=== PATIENT | male | born 1945 | race African-American/Black ===

== ENCOUNTER 2017-12-12 13:12 | Outpatient (CLI) | payer MEDICARE ==
--- NOTE | 2017-12-12 14:11 | RAD ---
4 VIEWS LUMBOSACRAL SPINE: Date: 12/12/17 COMPARISON: None. HISTORY: Low back pain radiating down both leg since last year. FINDINGS: AP, lateral, flexion, and extension views of the lumbosacral spine were performed. There is diffuse i ntervertebral disc space narrowing and moderate osteophytes throughout the lumbar spine. Vertebral fabián dies demonstrate normal height without fracture or subluxation. Alignment is unchanged with flexion a nd extension. Mild scoliotic curvature of the lumbar spine is seen. IMPRESSION: Degenerative changes of the lumbar spine with unchanged alignment with bending. POS: YOON
--- NOTE | 2017-12-12 14:45 | MRI ---
MRI OF THE LUMBAR SPINE WITHOUT CONTRAST: Comparison: 12-28-16 History: Low back pain radiating down both legs since last year. Technique: Multiplanar, multisequence MRI images were obtained of the lumbar spine without contrast. FINDINGS: There is diffuse low signal within the bone marrow on all obtained sequences which could represent a marrow infiltrative process. Generalized disc desiccation is seen. Endplate degenerative changes are seen throughout the lumbar spine. The conus medullaris terminates normally at L1-2. The prevertebral and paraspinal soft tissues are un remarkable. There is an area of abnormal high T1 and T2 signal within the central canal at the L3-4 l evel measuring approximately 8 mm in size. This is associated with the filum terminale and was not se en on the prior examination. T12-L1: Unremarkable. L1-2: A small disc osteophyte complex is seen. Mild bilateral posterior facet arthrosis. Mild central canal stenosis. No neural foraminal stenosis. L2-3: A small disc osteophyte complex is seen. Mild bilateral posterior facet arthrosis. Mild central canal stenosis. Mild bilateral neural foraminal stenosis. L3-4: The previously seen large protrusion is no longer present and may have been removed. A very min imal right subarticular disc bulge is seen. This is in the region where the abnormal signal is seen w ithin the central canal. Moderate posterior facet arthrosis. Moderate central canal stenosis. Moderat e bilateral neural foraminal stenosis. L4-5: A minimal disc osteophyte complex is seen. Moderate bilateral posterior facet arthrosis. Mild t o moderate central canal stenosis. Moderate bilateral neural foraminal stenosis. L5-S1: No significant bulge or protrusion. Moderate bilateral posterior facet arthrosis. No central c anal stenosis. Mild bilateral neural foraminal stenosis. IMPRESSION: 1. Degenerative changes of the lumbar spine as above. The previously seen protrusion at L3-4 is no lo nger present but there is abnormal signal within the central canal at this level. Post contrast MR im ages recommended to evaluate this lesion more definitely. 2. Diffuse low signal throughout the marrow could suggest a marrow infiltrative process. Correlate wi th laboratory values. POS: YOON
== END 2017-12-12 13:13 | disposition home or self-care (01) ==
LOC: TBSIIMAG 13:12
PROVIDERS: ATTEND Surgery
DX: M47.26 Other spondylosis with radiculopathy, lumbar region (principal)
CPT/HCPCS: 72110; 72148

== ENCOUNTER 2018-01-11 12:10 | Outpatient (CLI) | payer MEDICARE ==
[2018-01-11 13:06] LABS: Hemoglobin 14.6 g/dL (14.0-18.0); Mean Corpuscular HGB CONC 32.7 g/dL (32.0-36.0); Mean Corpuscular Volume 88.9 fL (78.0-98.0); Mean Platelet Volume 7.4 fL (7.4-10.4); Platelet Count 160 thou/uL (130-400); RBC Distribution Width 12.3 % (11.5-14.5); Red Blood Cell (RBC) Count 5.02 mill/uL (4.70-6.10); White Blood Cell (WBC) Count 5.1 thou/uL (4.8-10.8)
[2018-01-11 13:16] LABS: INR-International Normal Ratio 1.1; PTT 26.4 SEC (22.9-36.1); Prothrombin Time 13.8 SEC (12.0-14.7)
[2018-01-11 13:22] LABS: Anion Gap 11 mmol/L (10-20); BUN (Urea Nitrogen) 19 mg/dL (8.4-25.7); Calc. Creatinine Clearance 0 mL/min (70-130); Calcium 9.6 mg/dL (7.8-10.44); Carbon Dioxide 26 mmol/L (23-31); Chloride 107 mmol/L (98-107); Estimated GFR-MDRD 87; Glucose 98 mg/dL (83-110); Potassium 4.3 mmol/L (3.5-5.1); Sodium 140 mmol/L (136-145)
== END 2018-01-11 12:11 | disposition home or self-care (01) ==
LOC: LABBT 12:10
PROVIDERS: ATTEND Surgery
DX: Z01.818 Encounter for other preprocedural examination (principal); M48.061 Spinal stenosis, lumbar region without neurogenic claudication; M54.16 Radiculopathy, lumbar region
CPT/HCPCS: 80048; 85027; 85610; 85730

== ENCOUNTER 2018-12-04 12:54 | Outpatient (CLI) | payer MEDICARE ==
--- NOTE | 2018-12-04 13:42 | MRI ---
Lumbar spine MRI without contrast: 12/04/2018 COMPARISON: 12/12/2017 HISTORY: Lumbar radiculopathy, back pain radiating into bilateral lower extremities TECHNIQUE: Multiplanar multisequence MR imaging of lumbar spine is provided without contrast FINDINGS: There is homogeneous decreased T1 and T2 signal intensity throughout the marrow, as seen on prior imaging, a nonspecific finding which could reflect a marrow infiltrative process. Clinical correlation is essential. On the basis of 5 lumbar type vertebral bodies, the conus medullaris terminates at the L1 level. The sagittal STIR imaging demonstrates prominent edematous degenerative endplate change at L3-4, particularly to the left of midline. This has progressed since the prior examination. No significant anterolisthesis or retrolisthesis is noted on this exam. T12-L1: There is mild bilateral facet hypertrophy with no significant central canal or neural foramin al stenosis. L1-2: There is disc space narrowing and disc desiccation with mild disc bulge. Mild bilateral facet h ypertrophy. No significant central canal or neural foraminal stenosis. L2-3: There is disc space narrowing, disc desiccation, and mild disc bulge. There is mild bilateral f acet hypertrophy. No significant central canal or neural foraminal stenosis. L3-4: There is disc space narrowing and disc desiccation with mild disc bulge and mild right paracent ral posterior osteophyte. There is a moderate degree of central canal stenosis, particularly in the right paracentral region. Bilateral facet hypertrophy noted with moderate bilateral neural foraminal stenosis, left greater than right. Central canal and neural foraminal stenosis has worsened slightly since the prior exam. L4-5: There is disc space narrowing and disc desiccation with disc bulge. There is prominent bilatera l facet hypertrophy. There is mild central canal stenosis and mild left neural foraminal stenosis. There is severe right neural foraminal stenosis, slightly worsened since the prior exam. L5-S1: Mild facet hypertrophy bilaterally, left greater than right. No significant central canal or n eural foraminal stenosis. The visualized retroperitoneal structures demonstrate no acute findings. IMPRESSION: Multilevel lumbar spine degenerative change, worsened slightly since the prior examinatio n, most significant at L3-4 and L4-5. Abnormal signal intensity throughout the bone marrow as detailed above, a stable finding.
== END 2018-12-04 12:55 | disposition home or self-care (01) ==
LOC: TBSIIMAG 12:54
PROVIDERS: ATTEND Surgery
DX: M47.26 Other spondylosis with radiculopathy, lumbar region (principal); R93.7 Abnormal findings on diagnostic imaging of other parts of musculoskeletal system
CPT/HCPCS: 72148

== ENCOUNTER 2018-12-18 13:05 | Outpatient (CLI) | payer MEDICARE ==
[2018-12-18 14:12] LABS: PTT 26.1 SEC (22.9-36.1); Prothrombin Time 13.7 SEC (12.0-14.7)
== END 2018-12-18 13:06 | disposition home or self-care (01) ==
LOC: LABBT 13:05
PROVIDERS: ATTEND Surgery
DX: Z01.818 Encounter for other preprocedural examination (principal); M48.061 Spinal stenosis, lumbar region without neurogenic claudication; M54.16 Radiculopathy, lumbar region
CPT/HCPCS: 85610; 85730

== ENCOUNTER 2018-12-19 07:52 | Day surgery (SDC) | payer MEDICARE ==
[2018-12-18 13:26] VITALS: BMI 31.1
[2018-12-19] MEDS ORDERED: Sodium Chloride 0.9% 10 ML ONE (11:03)
[2018-12-19] MEDS ORDERED: Fentanyl 100 MCG/2 ML VIAL ONE (11:31)
[2018-12-19] MEDS ORDERED: Thrombin 5000 UNITS/5 ML VIAL ONE (12:35)
[2018-12-19] MEDS ORDERED: PACU-Morphine 4MG/ML VIAL SLOW IVP PRN (13:16)
[2018-12-19] MEDS ORDERED: HYDROmorphone 2 MG/ML VIAL SLOW IVP PRN (13:16)
[2018-12-19] MEDS ORDERED: Promethazine HCl 25 MG/ML VIAL IM PRN (13:16)
[2018-12-19] MEDS ORDERED: Morphine Sulfate 2 MG/ML SYRINGE SLOW IVP PRN (13:16)
[2018-12-19] MEDS ORDERED: Ondansetron HCl/PF 4 MG/2 ML Vial IVP PRN (13:16)
[2018-12-19] MEDS ORDERED: Promethazine HCl 25 MG/ML VIAL SLOW IVP PRN (13:16)
[2018-12-19] MEDS ORDERED: Mag-Al 1200 mg/1200 mg/30 ML UDCUP PO PRN (14:03)
[2018-12-19] MEDS ORDERED: Fleet Enema 133 ML BOT PR PRN (14:03)
[2018-12-19] MEDS ORDERED: Milk Of Magnesia 30 ML UDCUP PO PRN (14:03)
[2018-12-19] MEDS ORDERED: Morphine 2 MG/ML SYRINGE SLOW IVP PRN (14:03)
[2018-12-19] MEDS ORDERED: Promethazine HCl 25 MG/ML VIAL IM/IV PRN (14:03)
[2018-12-19] MEDS ORDERED: Bisacodyl 10 MG SUPP PR PRN (14:03)
[2018-12-19] MEDS ORDERED: HYDROcodone/Acetaminophen 7.5/325 mg Tablet PO PRN (14:03)
[2018-12-19] MEDS ORDERED: Acetaminophen 325 MG TAB PO PRN (14:03)
[2018-12-19] MEDS ORDERED: tiZANidine HCl 4 MG TAB PO PRN (14:03)
[2018-12-19] MEDS ORDERED: traMADol HCl 50 MG TAB PO PRN (14:03)
--- NOTE | 2018-12-19 15:56 | OP ---
DATE OF PROCEDURE: 12/19/2018 LICENSED PHYSICAL THERAPY ASSISTANT: Fracisco Freeman PA-C PREPROCEDURE DIAGNOSES: Lumbar stenosis with low back and leg pain with lumbar radiculopathy. POSTPROCEDURE DIAGNOSES: Lumbar stenosis with low back and leg pain with lumbar radiculopathy. PROCEDURES PERFORMED: L3-L4 and L4-L5 laminectomies, partial facetectomies, and foraminotomies over the L3, L4, and L5 nerve roots. DESCRIPTION OF PROCEDURE: After informed consent was obtained from the patient, the patient was brought to the OR. Proper patient, pause, and identification were carried out. The wound was then opened with combination of sharp, monopolar, and blunt dissection. The L3, L4, L5 dorsal spines and lamina were exposed. Localization film confirmed area of interest. Following satisfactory exposure, we then performed a L3, L4, and L5 laminectomies, partial facetectomies, and foraminotomies with excellent decompression of the common dural tube and nerve roots. Copious irrigation occurred throughout as did maximizing hemostasis. We then proceeded to close the wound in anatomic layers following sprinkling of vancomycin powder. The patient emerged from anesthesia. Job ID: [id number]
[2018-12-19] MEDS: Sodium Chloride 0.9% 1,000 ML IV SCH (16:29)
[2018-12-19] MEDS ORDERED: CEFAZOLIN 2 GM in Premix Bag 1 BAG IVPB SCH (17:00)
[2018-12-19] MEDS: CEFAZOLIN 2 GM in Premix Bag 1 BAG IVPB SCH (19:45)
[2018-12-19] MEDS: Gabapentin 300 MG CAP PO SCH (20:07)
[2018-12-19] MEDS ORDERED: Atorvastatin Calcium 20 MG TAB PO SCH (21:00)
[2018-12-20] MEDS: Sodium Chloride 0.9% 1,000 ML IV SCH (03:15)
[2018-12-20] MEDS: CEFAZOLIN 2 GM in Premix Bag 1 BAG IVPB SCH (03:31)
[2018-12-20 07:58] VITALS: BP 112/69; TEMP 98.1
--- NOTE | 2018-12-20 09:46 | PRG ---
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 He has had resolution in his leg pain, has excellent strength in his lower extremities, and is mobilizing and voiding spontaneously. We will dismiss and went over postoperative instructions. Job ID: [id number]
[2018-12-20] MEDS: Gabapentin 300 MG CAP PO SCH (10:59)
== END 2018-12-20 11:45 | disposition home or self-care (01) ==
LOC: SDC 07:52 → 3SE 14:03 → SDC 12-20 11:45
PROVIDERS: ATTEND Surgery
PROC: 01NB0ZZ Release Lumbar Nerve, Open Approach (ICD-10-PCS; principal; 2018-12-19)
DX: M48.061 Spinal stenosis, lumbar region without neurogenic claudication (principal); M54.16 Radiculopathy, lumbar region
CPT/HCPCS: 76000; J0690; J3010; J3370; J3490